=== PATIENT | male | born 1980 | race Caucasian/White ===

== ENCOUNTER 2019-09-15 06:03 | Emergency (ER) | payer SELFPAY ==
[2019-09-15 06:35] VITALS: BP 142/104
--- NOTE | 2019-09-15 07:13 | ER Document Report ---
ED General - General Chief Complaint: Groin Pain Stated Complaint: GROIN PAIN Time Seen by Provider: 09/15/19 07:12 TRAVEL OUTSIDE OF THE [place] IN LAST 30 DAYS: No - HPI Patient complains to provider of: left testicle pain Notes: 39-year-old male presents with 8/10 throbbing left testicle pain without radiation nothing makes it better or worse. This pain has been going on for o tracie 1 year. Patient states he has had CAT scans and MRIs of his scrotum and no one can find out what is going on. Patient is convinced there is a tapeworm or flat worms living in his scrotum. He believes it is moving around the base of his penis extending down through his perineum towards his rectum. Patient states no one believes him. Patient admits to methamphetamine use. - Related Data Allergies/Adverse Reactions: No Known Allergies Allergy (Unverified 09/15/19 06:26) Past Medical History - Social History Smoking Status: Current Every Day Smoker Drug Abuse: Methamphetamine Family History: None Patient has suicidal ideation: No Patient has homicidal ideation: No Review of Systems - Review of Systems Notes: REVIEW OF SYSTEMS: CONSTITUTIONAL: -fevers, -chills EENT: -eye pain, -difficulty swallowing, -nasal congestion CARDIOVASCULAR: -chest pain, -syncope. RESPIRATORY: -cough, -SOB GASTROINTESTINAL: -abdominal pain, -nausea, -vomiting, -diarrhea GENITOURINARY: -dysuria, -hematuria MUSCULOSKELETAL: -back pain, -neck pain SKIN: -rash or skin lesions. HEMATOLOGIC: -easy bruising or bleeding. LYMPHATIC: -swollen, enlarged glands. NEUROLOGICAL: -altered mental status or loss of consciousness, -headache, - neurologic symptoms PSYCHIATRIC: -anxiety, -depression. ALL OTHER SYSTEMS REVIEWED AND NEGATIVE. Physical Exam - Vital signs Vitals: Temp Pulse Resp BP Pulse Ox 98 F 132 H 14 142/104 H 100 09/15/19 06:27 09/15/19 06:27 09/15/19 06:27 09/15/19 06:27 09/15/19 06:27 - Notes Notes: PHYSICAL EXAMINATION: GENERAL: Well-appearing, well-nourished and in no acute distress. HEAD: Atraumatic, normocephalic. EYES: Pupils equal round and reactive to light, extraocular movements intact, sclera anicteric, conjunctiva are normal. ENT: nares patent, oropharynx clear without exudates. Moist mucous membranes. NECK: Normal range of motion, supple without lymphadenopathy LUNGS: Breath sounds clear to auscultation bilaterally and equal. No wheezes rales or rhonchi. HEART: Regular rate and rhythm without murmurs : Normal lie of bilateral testicles, no masses no mobile warm. Patient describes his spermatic cord as the computer forensics examiner question. EXTREMITIES: Normal range of motion, no pitting or edema. No cyanosis. NEUROLOGICAL: Cranial nerves grossly intact. Normal speech, normal gait. Normal sensory and motor exams. PSYCH: Normal mood, normal affect. SKIN: Warm, Dry, normal turgor, no rashes or lesions noted. Course - Re-evaluation Re-evalutation: 09/15/19 10:17 Patient has benign physical exam normal lie testicles. It appears patient is pointing at his left spermatic cord where it inserts into his pelvis. Normal penis. No overlying skin changes. No pain to my inspection. Patient is sent over for ultrasound of scrotum and pelvis. Received phone call from [employer] tactical analysis technician doing the study. There is state the man keeps saying there is a worm in his scrotum or penis they are not sure where to image. He is very aggressive with the admission. Encouraged her to image where he believes this worm is living. Patient very agitated in the department screaming and ranting that "we're all going to lose our jobs" I again exam patients scrotum and penis, do not feel any abnormality. Patient will be given f/u at urology. I again try to reassure patient he is feeling his spermatiacord. 09/15/19 10:21 Studies all unremarkable - Vital Signs Vital signs: Temp Pulse Resp BP Pulse Ox 98 F 132 H 33 H 142/104 H 97 09/15/19 06:27 09/15/19 06:27 09/15/19 08:00 09/15/19 06:27 09/15/19 08:00 - Laboratory Result Diagrams: 09/15/19 07:06 09/15/19 07:06 Laboratory results interpreted by me: 09/15/19 09/15/19 09/15/19 07:06 07:06 09:28 MCV 98 H MCH 34.3 H Eos % (Auto) 7.1 H Glucose 129 H Total Protein 8.7 H Urine Protein 30 H Urine Ketones TRACE H Salicylates < 1.0 L Acetaminophen < 10 L Discharge - Discharge Clinical Impression: Scrotum pain Condition: Stable Disposition: HOME, SELF-CARE Referrals: THEODORA FIGUEREDO MD [Primary Care Provider] - Follow up as needed SHANELLE DE JESUS DO [NO LOCAL MD] - Follow up as needed
[2019-09-15 07:18] LABS: ABSOLUTE EOSINOPHILS # (AUTO) 0.5 10^3/uL (0.0-0.6); ABSOLUTE LYMPHOCYTES (AUTO) 1.8 10^3/uL (0.5-4.7); ABSOLUTE MONOCYTES (AUTO) 0.6 10^3/uL (0.1-1.4); ABSOLUTE NEUT (AUTO) 4.5 10^3/uL (1.7-8.2); BASOPHILS % (AUTO) 0.4 % (0-2); EOSINOPHILS % (AUTO) 7.1 % (0-6); HEMATOCRIT 46.7 % (37.9-51.0); HEMOGLOBIN 16.3 g/dL (13.5-17.0); LYMPHOCYTES % (AUTO) 23.6 % (13-45); MEAN CORPUSCULAR HEMOGLOBIN 34.3 pg (27.0-33.4); MEAN CORPUSCULAR VOLUME 98 fl (80-97); MONOCYTES % (AUTO) 8.6 % (3-13); PLATELET COUNT 296 10^3/uL (150-450); RED BLOOD COUNT 4.77 10^6/uL (4.35-5.55); RED CELL DISTRIBUTION WIDTH 12.6 % (11.5-14.0); SEGMENTED NEUTROPHILS % (AUTO) 60.3 % (42-78); TOTAL CELLS COUNTED % (AUTO) 100 %; WHITE BLOOD COUNT 7.5 10^3/uL (4.0-10.5)
[2019-09-15] MEDS ORDERED: NORMAL SALINE 1000 ML 1,000 ML IV ONE (07:22)
[2019-09-15 07:42] LABS: ALKALINE PHOSPHATASE 46 U/L (38-126); ANION GAP 13 (5-19); ASPARTATE AMINO TRANSFERASE 26 U/L (17-59); BILIRUBIN,DIRECT 0.3 mg/dL (0.0-0.4); BILIRUBIN,TOTAL 0.6 mg/dL (0.2-1.3); BLOOD UREA NITROGEN 17 mg/dL (7-20); CALCIUM 9.9 mg/dL (8.4-10.2); CARBON DIOXIDE 28 mmol/L (22-30); CHLORIDE 100 mmol/L (98-107); GLUCOSE 129 mg/dL (75-110); POTASSIUM 3.8 mmol/L (3.6-5.0); TOTAL PROTEIN 8.7 g/dL (6.3-8.2)
[2019-09-15 07:46] LABS: ACETAMINOPHEN < 10 ug/mL (10-30); ALCOHOL < 10 mg/dL (NONE DETECTED); SALICYLATE < 1.0 mg/dL (2.0-20.0)
[2019-09-15 09:48] LABS: APPEARANCE,URINE CLEAR; BILIRUBIN,URINE NEGATIVE (NEGATIVE); CALCIUM OXALATE CRYSTALS,URINE MODERATE /HPF; COLOR,URINE YELLOW; GLUCOSE, URINE NEGATIVE (NEGATIVE); KETONES,URINE TRACE mg/dL (NEGATIVE); LEUKOCYTE ESTERASE,URINE NEGATIVE (NEGATIVE); NITRITE,URINE NEGATIVE (NEGATIVE); PROTEIN,URINE 30 mg/dL (NEGATIVE); URINE SPECIFIC GRAVITY 1.028; UROBILINOGEN,URINE NEGATIVE mg/dL (<2.0)
--- NOTE | 2019-09-15 10:03 | RADIOLOGY REPORT (SQ) ---
EXAM DESCRIPTION: U/S NON-OB PELVIS LTD W/O DOP COMPLETED DATE/TIME: 09/15/2019 9:53 am REASON FOR STUDY: left testicle pain COMPARISON: None. TECHNIQUE: Dynamic and static grayscale images acquired of the pelvis via transabdominal approach an d recorded on PACS. Additional selected color Doppler and spectral images recorded. LIMITATIONS: None. FINDINGS: Patient describes sensation of skin crawling or paresthesias along the inguinal and perine al regions. Ultrasound of the right and left inguinal regions and perineum was performed. No adenopathy or masses. No abscess. Normal flow in the inguinal vessels. No inguinal hernia. Patient refused a dedicated testicular/scrotal exam. IMPRESSION: No focal findings to explain the patient's history TECHNICAL DOCUMENTATION: JOB ID: [id number] 2010 [employer]- All Rights Reserved Rev Reading location - IP/workstation name: [email or web address]
[2019-09-15 10:05] LABS: URINE BARBITURATES SCREEN NEGATIVE; URINE BENZODIAZEPINES SCREEN NEGATIVE; URINE COCAINE SCREEN NEGATIVE; URINE METHADONE SCREEN NEGATIVE; URINE PHENCYCLIDINE SCREEN NEGATIVE
[2019-09-15 10:07] LABS: URINE MARIJUANA (THC) SCREEN UNCONFIRMED POSITIVE
--- NOTE | 2019-09-15 11:46 | EKG REPORT ---
SEVERITY:- OTHERWISE NORMAL ECG - SINUS TACHYCARDIA : Confirmed by: Amena Ag 15-Sep-2019 11:46:12
== END 2019-09-15 10:26 | disposition home or self-care (01) ==
LOC: ER 06:03
DX: N50.82 Scrotal pain (principal); F15.10 Other stimulant abuse, uncomplicated; F17.200 Nicotine dependence, unspecified, uncomplicated
CPT/HCPCS: 93005; 99284; 96360; 96361; 36415; 80307 ×4; 85025; 80053; 81001; 76857; 93010; J7030